=== PATIENT | male | born 1995 | race Caucasian/White ===

== ENCOUNTER 2019-04-13 02:02 | Observation (INO) ==
[2019-04-13 02:54] LABS: Bilirubin,Urine Moderate (Negative); Blood,Urine Large (Negative); Clarity,Urine Cloudy (Clear); Color,Urine Dark Yellow (Yellow); Glucose,Urine (UA) Normal (Normal); Ketones,Urine 15 mg/dL (Negative); Leukocyte Esterase,Urine Negative (Negative); Nitrite,Urine Negative (Negative); Protein,Urine 100 mg/dL (Neg-Trace); Specific Gravity,Urine > 1.030 (1.010-1.025)
[2019-04-13 02:57] LABS: Squamous Epithelial Cell,Urine Many per lpf (None-Few)
[2019-04-13 03:04] LABS: Basophils % 0.2 %; Lymphocytes % 2.9 %; Red Cell Distribution Width 12.9 % (11.5-14.5); Segmented Neutrophils % 91.4 %
[2019-04-13 03:06] LABS: Basophils # 0.1 K/mcL (0.0-0.2); Hematocrit 42.4 % (37.5-50.1); Immature Granulocytes % 0.5 % (0-4); Lymphocytes # 0.7 K/mcL (0.6-4.6); Mean Corpuscular HGB Conc 35.4 g/dL (31.6-35.5); Mean Corpuscular Hemoglobin 32.4 pg (28.0-33.3); Mean Corpuscular Volume 91.6 fL (83.0-100.0); Mean Platelet Volume 11.9 fL (9.4-12.4); Monocytes # 1.3 K/mcL (0.0-1.3); Platelet Count 192 K/mcL (140-400); Red Blood Count 4.63 M/mcL (4.19-5.50); White Blood Count 25.2 K/mcL (4.3-11.1)
[2019-04-13 03:07] LABS: Amphetamine Screen,Urine Positive ng/mL (Cutoff=1000); Barbiturate Screen,Urine Negative ng/mL (Cutoff=200); Benzodiazepines Screen,Urine Negative ng/mL (Cutoff=200); Cannabinoid Screen,Urine Positive ng/mL (Cutoff = 50); Cocaine Screen,Urine Negative ng/mL (Cutoff= 300); Opiate Screen,Urine Negative ng/mL (Cutoff=300); Phencyclidine Screen,Urine Negative ng/mL (Cutoff=25)
[2019-04-13 03:14] LABS: Mucus,Urine Moderate per lpf (Few); Sperm,Urine Present
[2019-04-13 03:15] LABS: Acetaminophen < 10 mcg/mL (10-20); BUN/Creatinine Ratio 20 (6-26); Bacteria,Urine Few per hpf (None-Few); Blood Urea Nitrogen 20 mg/dL (6-20); Calcium 10.6 mg/dL (8.6-10.3); Carbon Dioxide 25 mEq/L (23-29); Chloride 98 mEq/L (98-107); Chol/HDL Ratio 2.5 (0-4.9); Cholesterol 125 mg/dL (< 200); Ethanol < 10 mg/dL (Less than 10); Glucose 77 mg/dL (70-105); HDL Cholesterol 50 mg/dL (40-59); LDL Cholesterol,Calculated 65 mg/dL (0-99); Osmolality,Calculated 289 (280-300); Potassium 3.1 mEq/L (3.5-5.1); Salicylate < 2.5 mg/dL (15.0-30.0); Sodium 139 mEq/L (136-145); Triglycerides 48 mg/dL (< 150); eGFR For African Americans > 60 (> 60); eGFR For Non-African Americans > 60 (> 60)
[2019-04-13 03:22] LABS: Estimated Average Glucose 103 mg/dl
[2019-04-13] MEDS: 0.9 % Sodium Chloride 1,000 ML IVC SCH ×7 (03:38→22:32)
[2019-04-13] MEDS ORDERED: Potassium Chloride 40 MEQ, Lidocaine 1% 2 ML in 0.9 % Sodium Chloride 500 ML IVPB ONE (04:00)
[2019-04-13 05:02] LABS: Magnesium 2.4 mg/dL (1.6-2.6)
[2019-04-13] MEDS ORDERED: Naloxone 0.4 MG/ML INJ IVP PRN (08:02)
[2019-04-13] MEDS: *HR* Heparin 5,000 UNIT/ML VIAL SQ SCH (18:00)
[2019-04-14] MEDS: 0.9 % Sodium Chloride 1,000 ML IVC SCH ×3 (00:50→16:32)
[2019-04-14] MEDS: *HR* Heparin 5,000 UNIT/ML VIAL SQ SCH ×2 (05:30→16:28)
[2019-04-14 07:20] LABS: Basophils # 0.1 K/mcL (0.0-0.2); Basophils % 0.6 %; Eosinophils # 0.1 K/mcL (0.0-0.6); Eosinophils % 1.1 %; Hematocrit 35.6 % (37.5-50.1); Immature Granulocytes % 0.2 % (0-4); Lymphocytes # 2.2 K/mcL (0.6-4.6); Lymphocytes % 26.9 %; Mean Corpuscular HGB Conc 35.7 g/dL (31.6-35.5); Mean Corpuscular Hemoglobin 32.6 pg (28.0-33.3); Mean Corpuscular Volume 91.3 fL (83.0-100.0); Mean Platelet Volume 12.3 fL (9.4-12.4); Monocytes # 0.6 K/mcL (0.0-1.3); Monocytes % 7.7 %; Neutrophils # 5.1 K/mcL (1.6-8.9); Platelet Count 148 K/mcL (140-400); Red Cell Distribution Width 13.3 % (11.5-14.5); Segmented Neutrophils % 63.5 %
[2019-04-14 07:27] LABS: White Blood Count 8.1 K/mcL (4.3-11.1)
[2019-04-14 07:28] LABS: Hemoglobin 12.7 g/dL (12.9-16.9)
[2019-04-14 07:40] LABS: BUN/Creatinine Ratio 12 (6-26); Blood Urea Nitrogen 8 mg/dL (6-20); Calcium 8.1 mg/dL (8.6-10.3); Carbon Dioxide 22 mEq/L (23-29); Chloride 109 mEq/L (98-107); Creatine Kinase 585 Units/L (30-223); Glucose 84 mg/dL (70-105); Osmolality,Calculated 292 (280-300); Potassium 3.5 mEq/L (3.5-5.1); Sodium 142 mEq/L (136-145); eGFR For African Americans > 60 (> 60); eGFR For Non-African Americans > 60 (> 60)
[2019-04-14 09:25] VITALS: BP 107/64
== END 2019-04-14 17:40 | disposition left against medical advice (07) ==
LOC: 3BNU 02:02 → EMEROOARM 02:02 → SUATTDRO 06:14 → 3BNU 07:02
PROVIDERS: ADMIT Internal Medicine; ATTEND Internal Medicine